=== PATIENT | male | born 1965 | race Caucasian/White ===

== ENCOUNTER 2016-07-03 15:43 | Emergency (ER) | payer BC ==
[2016-07-03 20:50] LABS: HEMOGLOBIN 14.5 gm/dl (14.0-17.5); RED BLOOD COUNT 4.76 M/UL (4.20-5.50); WHITE BLOOD COUNT 13.1 K/UL (4.5-11.0)
[2016-07-03 21:17] LABS: BUN/CREATININE RATIO 17 (0-10)
== END 2016-07-03 23:30 | disposition home or self-care (01) ==
LOC: ER1 15:43
PROVIDERS: Family Medicine
DX: I82.401 Acute embolism and thrombosis of unspecified deep veins of right lower extremity (principal); I10 Essential (primary) hypertension; Z79.01 Long term (current) use of anticoagulants
CPT/HCPCS: 36415; 80053; 85025; 85379; 85610; 85730; 99283

== ENCOUNTER → 2016-07-03 | Outpatient (CLI) | payer BC | LOC: KOH-I 14:36 | DX: M79.661 Pain in right lower leg (principal); I82.401 Acute embolism and thrombosis of unspecified deep veins of right lower extremity | CPT/HCPCS: 93971 ==

== ENCOUNTER → 2016-10-02 | Outpatient (CLI) | payer BC | LOC: KOH-I 12:17 | DX: M79.661 Pain in right lower leg (principal); M89.9 Disorder of bone, unspecified | CPT/HCPCS: 73590 ==

== ENCOUNTER → 2021-01-17 | Outpatient (CLI) | payer BC ==
[~2021-01-17] MED LIST: AUGMENTIN 875-1 EACH PO; CATAPRES0.2 MG PO; EFFEXOR XR75 MG PO; ELIQUIS 5 MG TAB5 MG PO; HYGROTON TAB 2525 MG PO; LEVOCETIRIZINE D5 MG PO; MYRBETRIQ25 MG PO; PRAVACHOL40 MG PO; PRIMIDONE250 MG PO; PRIMIDONE50 MG PO; SINGULAIR10 MG PO
== END ==
LOC: KOH-I 14:46
DX: R05.9 Cough, unspecified (principal)
CPT/HCPCS: 71046

== ENCOUNTER 2021-01-26 15:42 | Emergency (ER) | payer BC ==
[~2021-01-26 15:42] MED LIST changes: -ASPIRIN EC81 MG PO
[2021-01-26] MEDS ORDERED: ASPIRIN EC81 MG PO (16:29)
== END 2021-01-26 16:39 | disposition home or self-care (01) ==
LOC: ER1 15:42
DX: I82.4Z1 Acute embolism and thrombosis of unspecified deep veins of right distal lower extremity (principal); I10 Essential (primary) hypertension; J45.909 Unspecified asthma, uncomplicated
CPT/HCPCS: 99283

== ENCOUNTER → 2021-01-26 | Outpatient (CLI) | payer BC ==
[~2021-01-26] MED LIST changes: +ASPIRIN EC81 MG PO
== END ==
LOC: KOH-I 14:54
DX: R60.0 Localized edema (principal); I82.811 Embolism and thrombosis of superficial veins of right lower extremity
CPT/HCPCS: 93971